=== PATIENT | male | born 1960 | race African-American/Black ===

== ENCOUNTER 2019-01-13 09:16 | Emergency (ER) | payer OTHER ==
[2019-01-13] MEDS ORDERED: NAPROXEN 500 MG TABLET (FP) PO ONE (09:44)
[2019-01-13] MEDS ORDERED: METHOCARBAMOL 500 MG TABLET PO ONE (09:44)
[2019-01-13] MEDS ORDERED: METHOCARBAMOL 500 MG TABLET ONE (09:54)
[2019-01-13] MEDS ORDERED: NAPROXEN 500 MG TABLET (FP) ONE (09:54)
[2019-01-13 09:56] VITALS: BP 130/71; PULSE 73; TEMP 98; BMI 28.7
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
== END 2019-01-13 12:53 | disposition home or self-care (01) ==
LOC: JER 09:16
DX: M54.2 Cervicalgia (principal); M54.42 Lumbago with sciatica, left side; V43.52XA Car driver injured in collision with other type car in traffic accident, initial encounter; Y93.89 Activity, other specified; Y92.410 Unspecified street and highway as the place of occurrence of the external cause; E11.9 Type 2 diabetes mellitus without complications; I10 Essential (primary) hypertension
CPT/HCPCS: 70450-TC; 71046-TC-FY; 72125-TC; 73523-TC-FY; 99281-25